=== PATIENT | female | born 1955 | race Caucasian/White ===

== ENCOUNTER 2025-06-11 15:40 | Emergency (ER) | payer MEDICARE, SELFPAY ==
[2025-06-11 15:52] VITALS: BP 150/74; PULSE 99; TEMP 36.8; O2SAT 95; BMI 45.7
--- NOTE | 2025-06-11 16:09 | XR_ITS ---
[address] [address] Patient Name: JOHN OLIVEROS MRN: [id number] date: 1955 Sex: F Assigned Patient Location: ER Current Patient Location: ED.MAIN Accession/Order Number: [id number] Exam Date: 06/11/2025 16:27 Report Date: 06/11/2025 16:55 At the request of: LILY MENDOZA Procedure: XR knee LT 3V LEFT KNEE - 3 views CLINICAL HISTORY: pain COMPARISON: None FINDINGS: Moderate degenerative changes with medial weightbearing joint space narrowing. No acute bony process. XR/XR knee LT 3V IMPRESSION: MODERATE DEGENERATIVE CHANGE. Impression dictated by: Julio Cesar Diaz Jr., D.OPooja 06/11/2025 4:55 PM Dictation Location: [place] [address] Electronically authenticated by: [id number] Y Date: 06/11/2025 16:55
--- NOTE | 2025-06-11 16:10 | ED_ITS ---
HPI HPI - Extremity Injury (Lower) General Chief Complaint: Extremity Injury, Lower Stated Complaint: LOWER PAIN Time Seen by Provider: 06/11/25 15:46 Source: patient Mode of arrival: Wheelchair History of Present Illness HPI Narrative: Patient is a 69-year-old female who presents to the ER with her spouse for evaluation of left knee pain. Patient states a couple days ago she was walking and felt her knee shift which started some pain. She is having difficulty weightbearing but reports no pain at rest. She has taken Tylenol No. 4 in the past for this but does not have any of that medication prescribed to her at this time. She reports it has been over a year since she had a cortisone injection in the knee and previously got gel injections with good relief. She has done orthopedic care through Dr. Lange at [facility] orth[facility]. Patient denies any radicular symptoms. She denies any fever or chills. Pain present with weightbearing she is using a cane today to ambulate but prefers a wheelchair for long distances. The patient states she is disabled due to her bilateral knee pains and arthritis and does not work or walk much because of this. She did not take any medication prior to arrival and declines the use of an ice pack. She denies any head or neck injury. She denies a fall. The patient does take Eliquis for A-fib and typically can only take Tylenol for p ain. She denies any other joint pains at present time. Patient appears in no distress and easily talks about symptoms but appears to have pain on end range of motion and weightbearing involving the left knee joint. Patient states she has had this similar pain in the past when her knee shifts with exacerbation of arthritis symptoms. complaint: Reports knee injury Onset (ago): day(s) (2) Injury: Left: knee Place: Reports home Severity: moderate Relieving factors: Reports rest Exacerbating factors: Reports weight bearing and movement Other symptoms: Reports none Related Data Home Medications ?Medication ?Instructions ?Recorded ?Confirmed apixaban 5 mg tablet (Eliquis) 5 mg PO BID 06/11/25 Previous Rx's ?Medication ?Instructions ?Recorded acetaminophen 300 mg-codeine 30 mg 1 tab PO Q6H PRN pa in 2 days #8 06/11/25 tablet tabs prednisone 20 mg tablet 40 mg (2 x 20 mg) PO ONCE 5 days 06/11/25 #10 tabs Allergies Allergy/AdvReac Type Severity Reaction Status Date / Time acetaminophen (From Vicodin) Allergy sleep walk Verified 06/11/25 15:50 hydrocodone (From Vicodin) Allergy sleep walk Verified 06/11/25 15:50 lidocaine Allergy tachycardia Verified 06/11/25 15:50 tetanus and diphtheria Allergy swelling Verified 06/11/25 15:50 toxoids Opioid HPI Opioid Management Most Recent Pain and Opioid Data: Last Pain Scale 8 Today, 16:20 Last MAR Pain Assessment Today, 16:20 Review of Systems ROS Constitutional Denies: fever or chills Ears, nose, mouth, and throat Denies: throat pain or neck pain Cardiovascular Denies: chest pain, palpitations or edema Respiratory Denies: shortness of breath or cough Genitourinary Denies: painful urination Musculoskeletal Reports: extremity pain (left knee) and joint pain; Denies: back pain Integumentary/Breast Denies: rash Neurological Denies: headache Psychiatric Denies: anxiety Hematologic/Lymphatic Reports: easy bruising (eliquis use ) PFSH PFSH Social History Little interest or pleasure in doing things: not at all Feeling down, depressed, or hopeless: not at all Exam Narrative Exam Narrative: Vital signs reviewed and nurse's notes. The patient is not hypoxic. General: Alert, no acute distress, patient resting comfortably Skin: warm, intact, no pallor noted Head: Normocephalic, atraumatic Eye: Normal conjunctiva, no exudates Respiratory: No acute distress, lungs CTA Musculoskeletal: No evidence of deformity to the left knee. There is symmetric appearing adipose tissue to distal thigh. skin wrinkles present and an effusion is not appreciated. There is no ecchymosis or sign of injury, No erythema or warmth noted. DP and PT pulses are intact 2+. Normal sensation, normal capillary refill less than 2 seconds. There is no cyanosis or mottling noted. The patient has tenderness to medial and lateral joint line. + patella femoral crepitus on motion. The patient has no signficant laxity or pain with gentle varus or valgus stressing. The patient has negative anterior drawer and Gurpreet test could not be preformed with pain and leg girth. The patient was able to flex and extend although with pain. PROM 5-85 with AROM 0-90 + pain on end rom on left knee. Right knee is 0-95 AROM=PROM + patella femoral crepitus. Patient was able to extend leg off the cart. No tenderness noted to the 5th MT, midfoot, ankle or proximal fibular area. There is no pain with calcaneal squeeze, achilles tendon is intact and no defect is palpated. The patient has no pelvic instability. The patient has no shortening or rotation noted to the bilateral lower extremities. no calf pain. Neurological: alert and orient x4, normal sensory and motor observed. Psychiatric: Cooperative Constitutional Vital Signs, click to edit/add: Last Vital Signs Temp 98.2 F 06/11/25 15:52 Pulse 99 H 06/11/25 15:52 Resp 18 06/11/25 15:52 BP 150/74 H 06/11/25 15:52 Pulse Ox 95 06/11/25 15:52 O2 Del Method Room Air 06/11/25 15:52 Course Vital Signs Vital signs: Vital Signs Temperature 98.2 F 06/11/25 15:52 Pulse Rate 99 H 06/11/25 15:52 Respiratory Rate 18 06/11/25 15:52 Blood Pressure 150/74 H 06/11/25 15:52 Pulse Oximetry 95 06/11/25 15:52 Oxygen Delivery Method Room Air 06/11/25 15:52 Temperature 98.2 F 06/11/25 15:52 Pulse Rate 99 H 06/11/25 15:52 Respiratory Rate 18 06/11/25 15:52 Blood Pressure 150/74 H 06/11/25 15:52 Pulse Oximetry 95 06/11/25 15:52 Oxygen Delivery Method Room Air 06/11/25 15:52 MDM - Extremity Injury (Lower) MDM Narrative Medical decision making narrative: Patient arrives via wheelchair uses cane to transfer. No fever no joint findings concerning for infection at this time. Patient reports a history of arthritis that has led to disability and that she has not seen her orthopedic in quite some time to discuss a cortisone injection or gel injection which has provided her relief in the past. Her knee range of motion is limited by pain on end range of motion and a mild effusion is possible but limited on exam with adipose tissue. We discussed her blood thinner medication and an x-ray will be performed to rule out fracture given her pain with weightbearing, she does not have pain at rest or with gentle passive motion. Should be given a Tylenol 3 for her acute pain and prednisone for anti-inflammatory effect with risks and benefits discussed. Patient states she has taken prednisone in the past without adverse effects but does have difficulty with multiple oral pain medications citing allergies. Reviewed x-rays, no obvious fracture. Chondral contusion cannot be excluded. Most importantly there is no fever or warmth or concerning findings for infection at this time. I do not feel a joint aspiration is warranted. We discussed the need to take prednisone for inflammation ice elevate and use compression. Patient will be placed in a Khan wrap today. We discussed a very short supply of Tylenol 3 which has not indicated for long-term treatment of knee arthritis but given trace effusion and her use of blood thinners we will start this pending improvement with the oral prednisone. Patient encouraged to follow-up with orthopedics to discuss additional conservative measures patient will try to be nonweightbearing in her home pending follow-up in the office. The patient is to followup with orthopedics in next 2-3 days or to return to the emergency department should any of the signs or symptoms worsen or new symptoms develop. Patient had questions answered. The patient agrees with the following Diagnosis and Treatment plan and the patient will be discharged home. Imaging Data left knee xray, : Attestation: I personally reviewed and interpreted this imaging study as follows: My impression: Preliminary review left knee x-ray shows osteopenia with [id number] articulation medial joint line significant subchondral sclerosis and flattening of the articular surface with associated osteophytes to the weightbearing joint spaces. There is moderate patellofemoral arthritic changes as well. No acute fracture visualized. left knee xray: Radiologist's impression: ITS Impressions Knee X-Ray 06/11/25 16:09 IMPRESSION: MODERATE DEGENERATIVE CHANGE. Impression dictated by: Julio Cesar Diaz Jr., D.O. 06/11/2025 4:55 PM Dictation Location: [place] Electronically authenticated by: [id number] Y Date: 06/11/2025 16:55 Discharge Plan Discharge Chief Complaint: Extremity Injury, Lower Clinical Impression: Acute pain of left knee, Arthritis of knee, left Patient Disposition: Home, Self-Care Time of Disposition Decision: 16:41 Condition: Good Prescriptions / Home Meds: New prednisone 20 mg tablet 40 mg PO ONCE 5 Days Qty: 10 0RF acetaminophen-codeine 300-30 mg tablet 1 tab PO Q6H PRN (Reason: pain) 2 Days Qty: 8 0RF Rx Instructions: dX M17.12 No Action Eliquis 5 mg tablet 5 mg PO BID Print Language: Martiniquais Instructions: Osteoarthritis (ED), Knee Pain (ED) Additional Instructions: Dr. Camara ins celebrity chef entrepreneur media personality for Dr. Knight. please call their Office Friday for follow up. Referrals: ALISTAIR CAMARA [Physician, Family Practice] - As soon as possible
[2025-06-11] MEDS: PREDNISONE 20 MG TABLET 40 MG PO (16:20)
[2025-06-11] MEDS: ACETAMINOPHEN 300 MG/ 30 MG CODEINE TABLET 1 TAB PO (16:20)
--- OUTSIDE RECORDS SUMMARY | 2025-06-11 16:55 | XMS_ITS | Clinical Summary ---
Author Organization [facility] Address [address] [place] [address] Phone Care Team Providers Care Tubular Stock Glass Bulb Machine Former Name Role Phone JaylaRoger matthews Primary Care Provider [phone] Allergies Active AllergyReactionsCriticalityNoted DateCommentsAspirinOther,Nausea/vomiting 10/02/20232575GdihyugdjJltgzwe29/11/2024Hydrocodone-FininjqnvbsgtFowiqXkvo01/12/2023 Bradycardia AoglncucxMycjopobqrqpMin44/03/2023 Increases heart ate Oxycodone-AcetaminophenNausea DhecBtj7803/04/20235561UxxjqxmqNmegoEkp00/12/2023 NtjomuduesrhNkxauxeBoq85/12/8360EndtxuouwthagcdjZdbgqOppx32/23/2025Tetanus Toxoid, NtjbvtvuJkkedjmWcdxit22/12/2023 Medications MedicationSigDispense QuantityRefillsLast FilledStart DateEnd DateStatus pantoprazole (ProtoNix) 40 mg EC tablet Take 1 tablet (40 mg) by mouth once daily.10/11/2021ctive cyanocobalamin (Vitamin B-12) 1,000 mcg/mL oral liquid Take 1 mL (1,000 mcg) by mouth every 30 (thirty) days.Active traMADol (Ultram) 50 mg tablet Take 1 tablet (50 mg) by mouth.Active magnesium oxide (Mag-Ox) 400 mg tablet 1 tablet (400 mg) once daily.Active metoprolol succinate XL (Toprol-XL) 50 mg 24 hr tablet Indications:CHF (NYHA class III, ACC/AHA stage C) (Multi)Take 1 tablet (50 mg) by mouth once daily. Do not crush or chew. 90 tablet ctive torsemide (Demadex) 10 mg tablet Indications:CHF (NYHA class III, ACC/AHA stage C) (Multi)Take 0.5 tablets (5 mg) by mouth once daily. 45 tablet ctive apixaban (Eliquis) 5 mg tablet Indications:Permanent atrial fibrillation (Multi)Take 1 tablet (5 mg) by mouth 2 times a day. 180 tablet ctive apixaban (Eliquis) 5 mg tablet Indications:Permanent atrial fibrillation (Multi)Take 1 tablet (5 mg) by mouth 2 times a day. 180 tablet Discontinued(Reorder) metoprolol succinate XL (Toprol-XL) 50 mg 24 hr tablet Indications:CHF (NYHA class III, ACC/AHA stage C) (Multi)Take 1 tablet (50 mg) by mouth once daily. Do not crush or chew. 90 tablet Discontinued(Reorder) torsemide (Demadex) 10 mg tablet Indications:CHF (NYHA class III, ACC/AHA stage C) (Multi)Take 0.5 tablets (5 mg) by mouth once daily. 45 tablet Discontinued(Reorder) Active Problems ProblemNoted DateDiagnosed DateNasal hgcaboip51/01/2025Use of cane as ambulatory aid05/23/2025Encounter to discuss test tgkxvbi8105/23/2025S/P gastric bypass 06/07/2024Medication course padpsga0610/09/2023Hiatal kkrzis0510/09/2023Stage 3b chronic kidney disease (CKD)10/09/2023Long term current use of anticoagulant bxnodkd8904/07/2023Stage 3a chronic kidney aslomwj2804/07/2023Essential hypertension 04/07/2023MI 45.0-49.9, adult04/07/2023HF (NYHA class III, ACC/AHA stage C) 03/04/2023ongenital stenosis of aortic valve03/04/2023iastolic congestive heart failure, NYHA class 5095Bytgwcyzqwvy61/12/2023Hyponatremia 03/04/20233627Zoqldwxejrmavt65/12/2023Microcytic msdznj9603/04/20230425Dmckbf02/12/2023 Permanent atrial qrnzgvvomicr93/12/2023SOB (shortness of breath) on exertion 03/04/2023Tricuspid mgjyfrrgdpqba71/12/2023First degree AV block03/04/2023Former ktbbye4103/04/2023Sinus hmelaspaoqr48/12/2023 Encounters DateTypeDepartmentCare ZlzjUhtxuwpwust89/01/2025 2:00 PM ESTOffice Visit [facility] [address] [address] Erna Smyth MD Permanent atrial fibrillation (Multi); Encounter to discuss test results; Body mass index 45.0-49.9, adult ([facility]); CHF (NYHA class III, ACC/AHA stage C) (Multi); Murmur; [employer] current use of anticoagulant therapy; Nasal bleeding; Hyperkalemia; Microcytic anemia; Hyponatremia; S/P gastric bypass; Use of cane as ambulatory aid; BMI 45.0-49.9, adult (Multi); Former smoker; Lipid screening Discharge Disposition: Home05/23/2025Travelfrom Last 3 Months Immunizations ImmunizationAdministration DatesNext DueFlu vaccine (IIV4), preservative free *Check age/dose*05/28/2018Influenza, injectable, ebefcwsanqqm75/12/2018, 04/03/2017Influenza, seasonal, ugcfqyejzj72/30/2019 Family History Medical HistoryRelationNameCommentscardiac disorderBrotherHeart attackFather Heart failureFathercardiac disorderFatherCoronary artery diseaseMothercardiac disorderMotherIschemic heart diseaseOtherRelationNameStatusCommentsBrotherFather DeceasedMotherDeceasedOther Social History Tobacco UseTypesPacks/DayYears UsedDateSmoking Tobacco: FormerCigarettes Smokeless Tobacco: Never Tobacco Cessation:Counseling Given: Yes Alcohol UseStandard Drinks/WeekCommentsNever0 (1 standard drink = 0.6 oz pure alcohol)PHQ-2AnswerDate RecordedPatient Health Questionnaire-2 Qwosh677 CommentsUnknownSex and Gender InformationValueDate RecordedSex Assigned at BirthNot on fileLegal AncCscael15/26/2022 4:26 PM ESTGender IdentityNot on fileSexual OrientationNot on file Last Filed Vital Signs Vital SignReadingTime TakenCommentsBlood Lmfslxxg141/7405/23/2025 2:17 PM EST Doyju517605/23/2025 2:17 PM ESTTemperature--Respiratory Rate--Oxygen Saturation-- Inhaled Oxygen Concentration--Zvbvwx974 kg (264 lb)05/23/2025 2:17 PM ESTHeight 157.5 cm (5' 2 )05/23/2025 2:17 PM ESTBody Mass Index48.29107/24/2024 2:17 PM EST Plan of Treatment DateTypeDepartmentCare Team (Latest Contact Info)Cjzrolrcyzt34/01/2026 2:00 PM EDTOffice Visit at [facility] [address] [facility] [address] [place] [address] Erna Smyth MD [address] [facility] [address] [place] [address] Health MaintenanceDue DateLast DoneCommentsCT Othwrzgllgsn75/14/1954Colonoscopy 4Colorectal Cancer Oiijdcqjf81/14/1954Creatinine Level1953FIT-DNA (Cologuard)1955FIT1953Lipid Panel1953Medicare Annual Wellness Visit (AWV)4Potassium Level1955 9555Mmbeisljkovgv87/14/1954TSH Level 1955MMR Vaccines (1 of 1 - Standard series)1954Hepatitis C Screening 09/04/1971CKD: Urine Protein Wblhjubso29/14/1973DTaP/Tdap/Td Vaccines (1 - Tdap) 09/04/19751686Kemzumqpc57/14/1994RSV High Risk: (Elderly (60+) or Population) (1 - Risk 50-74 years 1-dose series)09/04/2003Zoster Vaccines (1 of 2)09/04/2003Bone Density Scan09/03/20183465Oednbhpiqmxlmm68/20/767286/, 2COVID-19 Vaccine ( season), 09/22/2020, 09/01/2020Influenza Vaccine (#1), 04/21/2019, 06/03/2018, Additional history existsPneumococcal XfzweqpAhyxrrshk99/23/2023HIB VaccinesAged OutNo longer eligible based on patient's age to complete this topicHPV Vaccines Aged OutNo longer eligible based on patient's age to complete this topic Hepatitis A VaccinesAged OutNo longer eligible based on patient's age to complete this topicHepatitis B VaccinesAged OutNo longer eligible based on patient's age to complete this topicIPV VaccinesAged OutNo longer eligible based on patient's age to complete this topicMeningococcal VaccineAged OutNo longer eligible based on patient's age to complete this topicRotavirus VaccinesAged Out No longer eligible based on patient's age to complete this topic Procedures Procedure NamePriorityDate/TimeAssociated DiagnosisCommentsECHOCARDIOGRAMRoutine 10/10/2021 from Last 3 Months or Most Recently Relevant to Health Maintenance Results * Echocardiogram (10/10/2021)Specimen (Source)Anatomical Location / Laterality Collection Method / VolumeCollection TimeReceived Time10/10/2021 [facility] RADIOLOGY SYSTEM - 10/10/2021 12:00 AM EDT ?[address], Suite [facility], [place] [address] ? TRANSTHORACIC ECHOCARDIOGRAM REPORT Patient Name: ? TRACY OLIVEROS Reading Physician: ??[id number] Kori South ? Study Date: ? 10/10/2021 ?Referring ? [id number] ERNA SMYTH ? Physician: MRN/PID: ?[id number] ? PCP: ?Roger Dickerson MD Accession/Order#: [id number] ?? Department ?[facility] ? Location: Date of : ?1955 ?Fellow: Gender: ? F ?Nurse: ?Priya Raphael sales order coordinator Date: ?Sawmill Production Worker: ?Radha Mclaughlin RDCS, RVT Height: ? 157.48 cm ?CC Report to: Weight: ? 123.38 kg ?Study Type: ? Echocardiogram BSA: ?2.18 m2 Blood Pressure: 140 /78 mmHg Diagnosis/ICD: I48.19-Other persistent AFib; R06.02-Shortness of breath; ? R60.0-Localized edema Indication: ?CHF, Murmur, Anemia, Morbid Obesity-s/p Bariatric Surgery, Former ? Smoker Procedure/CPT: Echo Complete w Full Doppler-[id number] Study Detail: The following Echo studies were performed: 2D, M-Mode, Doppler and ?color flow. Optison used as a contrast agent for endocardial ?border definition. Total contrast used for this procedure was 0.7 ?mL via IV push. PHYSICIAN INTERPRETATION: Left Ventricle: The left ventricular systolic function is normal, with an estimated ejection fraction of 65%. The left ventricular cavity size is normal. Spectral Doppler shows a normal pattern of left ventricular diastolic filling. Mild LVH. Left Atrium: The left atrium is moderately dilated. Right Ventricle: The right ventricle is normal in size. There is normal right ventricular global systolic function. Right Atrium: The right atrium is normal in size. Aortic Valve: The aortic valve appears structurally normal. There is trace to mild aortic valve regurgitation. The peak instantaneous gradient of the aortic valve is 27.0 mmHg. The mean gradient of the aortic valve is 14.0 mmHg. Mitral Valve: The mitral valve is normal in structure. There is mild mitral valve regurgitation. Mild mitral regurgitation. Tricuspid Valve: The tricuspid valve is structurally normal. There is mild tricuspid regurgitation.The Doppler estimated RVSP is mildly elevated at 39.7 mmHg. Mild tricuspid regurgitation. Pulmonic Valve: The pulmonic valve is structurally normal. There is no indication of pulmonic valveregurgitation. Pericardium: There is no pericardial effusion noted. Aorta: The aortic root is normal. CONCLUSIONS: 1. The left ventricular systolic function is normal with a 65% estimated ejection fraction. 2. Mild LVH. 3. The left atrium is moderately dilated. 4. Mild mitral regurgitation. 5. Mild tricuspid regurgitation. 6. Mildly elevated RVSP. 7. No previous study available for comparison. QUANTITATIVE DATA SUMMARY: 2D MEASUREMENTS: ?Normal Ranges: Ao Root d: ? 3.10 cm ?(2.0-3.7cm) LAs: ? 4.90 cm ?(2.7-4.0cm) RVIDd: ? 3.30 cm ?(0.9-3.6cm) IVSd: ?1.50 cm ?(0.6-1.1cm) LVPWd: ? 1.20 cm ?(0.6-1.1cm) LVIDd: ? 4.80 cm ?(3.9-5.9cm) LVIDs: ? 3.10 cm LV Mass Index: 119.2 g/m2 LV % FS ?35.4 % LV SYSTOLIC FUNCTION BY 2D PLANIMETRY (MOD): ?Normal Ranges: EF-A4C View: 63.8 % (>55%) LV DIASTOLIC FUNCTION: ?Normal Ranges: MV Peak E: 1.73 m/s (0.7-1.2 m/s) MITRAL VALVE: ?Normal Ranges: MV Vmax: 2.04 m/s (<1.3m/s) MV peak P.6 mmHg (<5mmHg) MV mean P.0 mmHg (<48mmHg) MITRAL INSUFFICIENCY: ? Normal Ranges: MR Vmax: 438.00 cm/s AORTIC VALVE: ? Normal Ranges: AoV Vmax: 2.60 m/s (<1.7m/s) AoV Peak P.0 mmHg (<20mmHg) AoV Mean PG: ? 14.0 mmHg (1.7-11.5mmHg) LVOT Max Grant: 1.06 m/s (<1.1m/s) AoV VTI: ? 54.00 cm ??(18-25cm) LVOT VTI: ?25.90 cm LVOT Diameter: ? 1.90 cm ?? (1.8-2.4cm) AoV Area, VTI: ? 1.36 cm2 ??(2.5-5.5cm2) AoV Area,Vmax: ? 1.16 cm2 ??(2.5-4.5cm2) AoV Dimensionless Index: 0.48 AORTIC INSUFFICIENCY: AI Vmax: ? 2.82 m/s AI Half-time: ??292 msec AI Decel Rate: 276.00 cm/s2 TRICUSPID VALVE/RVSP: ?Normal Ranges: Peak TR Velocity: 3.03 m/s RV Syst Pressure: 39.7 mmHg (< 30mmHg) PULMONIC VALVE: ? Normal Ranges: PV Max Grant: 0.9 m/s ??(0.6-0.9m/s) PV Max PG: ??2.9 mmHg [id number] Kori South MD Electronically signed on 10/10/2021 at 6:24:21 PM Final Procedure Note Conversion, Syngo - 07/26/[address], [address] [place] [address] TRANSTHORACIC ECHOCARDIOGRAM REPORT Patient Name: TRACY OLIVEROS Reading Physician: [id number] Be SMITH Study Date: 10/10/2021 Referring [id number] ERNA SMYTH Physician: MRN/PID: [id number] PCP: Roger Dickerson MD Accession/Order#: [id number] Department [facility] Location: Date of : 1955 Fellow: Gender: F Nurse: Priya Raphael RN Admit Date: [employer]mill Production Worker: Radha Mclaughlin RDCS,RVT Height: 157.48 cm CC Report to: Weight: 123.38 kg Study Type: Echocardiogram BSA: 2.18 m2 Blood Pressure: 140 /78 mmHg Diagnosis/ICD: I48.19-Other persistent AFib; R06.02-Shortness of breath; R60.0-Localized edema Indication: CHF, Murmur, Anemia, Morbid Obesity-s/p Bariatric Surgery,Former Smoker Procedure/CPT: Echo Complete w Full Doppler-[id number] Study Detail: The following Echo studies were performed: 2D, M-Mode,Doppler and color flow. Optison used as a contrast agent forendocardial border definition. Total contrast used for this procedurewas 0.7 mL via IV push. PHYSICIAN INTERPRETATION: Left Ventricle: The left ventricular systolic function is normal, with an estimated ejection fraction of 65%. The left ventricular cavity size isnormal. Spectral Doppler shows a normal pattern of left ventriculardiastolic filling. Mild LVH. Left Atrium: The left atrium is moderately dilated. Right Ventricle: The right ventricle is normal in size. There is normalright ventricular global systolic function. Right Atrium: The right atrium is normal in size. Aortic Valve: The aortic valve appears structurally normal. There is traceto mild aortic valve regurgitation. The peak instantaneous gradient of theaortic valve is 27.0 mmHg. The mean gradient of the aortic valve is 14.0mmHg. Mitral Valve: The mitral valve is normal in structure. There is mildmitral valve regurgitation. Mild mitral regurgitation. Tricuspid Valve: The tricuspid valve is structurally normal. There is mild tricuspid regurgitation. The Doppler estimated RVSP is mildly elevated at39.7 mmHg. Mild tricuspid regurgitation. Pulmonic Valve: The pulmonic valve is structurally normal. There is noindication of pulmonic valve regurgitation. Pericardium: There is no pericardial effusion noted. Aorta: The aortic root is normal. CONCLUSIONS: 1. The left ventricular systolic function is normal with a 65% estimatedejection fraction. 2. Mild LVH. 3. The left atrium is moderately dilated. 4. Mild mitral regurgitation. 5. Mild tricuspid regurgitation. 6. Mildly elevated RVSP. 7. No previous study available for comparison. QUANTITATIVE DATA SUMMARY: 2D MEASUREMENTS: Normal Ranges: Ao Root d: 3.10 cm (2.0-3.7cm) LAs: 4.90 cm (2.7-4.0cm) RVIDd: 3.30 cm (0.9-3.6cm) IVSd: 1.50 cm (0.6-1.1cm) LVPWd: 1.20 cm (0.6-1.1cm) LVIDd: 4.80 cm (3.9-5.9cm) LVIDs: 3.10 cm LV Mass Index: 119.2 g/m2 LV % FS 35.4 % LV SYSTOLIC FUNCTION BY 2D PLANIMETRY (MOD): Normal Ranges: EF-A4C View: 63.8 % (>55%) LV DIASTOLIC FUNCTION: Normal Ranges: MV Peak E: 1.73 m/s (0.7-1.2 m/s) MITRAL VALVE: Normal Ranges: MV Vmax: 2.04 m/s (<1.3m/s) MV peak P.6 mmHg (<5mmHg) MV mean P.0 mmHg (<48mmHg) MITRAL INSUFFICIENCY: Normal Ranges: MR Vmax: 438.00 cm/s AORTIC VALVE: Normal Ranges: AoV Vmax: 2.60 m/s (<1.7m/s) AoV Peak P.0 mmHg (<20mmHg) AoV Mean P.0 mmHg (1.7-11.5mmHg) LVOT Max Grant: 1.06 m/s (<1.1m/s) AoV VTI: 54.00 cm (18-25cm) LVOT VTI: 25.90 cm LVOT Diameter: 1.90 cm (1.8-2.4cm) AoV Area, VTI: 1.36 cm2 (2.5-5.5cm2) AoV Area,Vmax: 1.16 cm2 (2.5-4.5cm2) AoV Dimensionless Index: 0.48 AORTIC INSUFFICIENCY: AI Vmax: 2.82 m/s AI Half-time: 292 msec AI Decel Rate: 276.00 cm/s2 TRICUSPID VALVE/RVSP: Normal Ranges: Peak TR Velocity: 3.03 m/s RV Syst Pressure: 39.7 mmHg (< 30mmHg) PULMONIC VALVE: Normal Ranges: PV Max Grant: 0.9 m/s (0.6-0.9m/s) PV Max P.9 mmHg [id number] Kori South MD Electronically signed on 10/10/2021 at 6:24:21 PM Final Authorizing ProviderResult TypeResult StatusSyngo ConversionCV ECHO PROCEDURES Final ResultPerforming OrganizationAddressCity/State/ZIP CodeAscension St. [facility] Number [facility] [address] from Last 3 Months or Most Recently Relevant to Health Maintenance Insurance Care Teams Team MemberRelationshipSpecialtyStart DateEnd Date Roger Dickerson DO [address] [address] PCP - General06/23/19
--- OUTSIDE RECORDS SUMMARY | 2025-06-11 16:55 | XMS_ITS | Clinical Summary ---
Author Organization [facility] Address [address] [place] [address] Care Team Providers Care Inhalation Therapist Name Role Phone Quinn Herbert Primary Care Provider [phone]- [phone] Roger Dickerson DO Unavailable [phone] Allergies Active AllergyReactionsCriticalityNoted DateCommentsPropoxyphene N-Acetaminophen GI Upset03/25/2023LidocaineOther: See Lhzyvwvc23/03/2023 Increases heart ate ProcaineOther: See Vgpnutco20/03/2023 Increases heart rate Tetanus And Diphtheria IccpewtRutnfyiv18/03/2023 Arm swells up Hydrocodone-AcetaminophenOther: See Vqrqrgyl31/03/2023 Swelling and redness of face Medications MedicationSigDispense QuantityRefillsLast FilledStart DateEnd DateStatus sulfamethoxazole-trimethoprim (BACTRIM DS) 800-160 mg per tablet Take 1 tablet by mouth two times a day. Take 1 tablet BID x 21 daysActive escitalopram oxalate (LEXAPRO) 5 mg tablet Take 5 mg by mouth once daily.Active flecainide (TAMBOCOR) 150 mg tablet Take 50 mg by mouth two times a day.Active metoprolol succinate ER (TOPROL XL) 25 mg 24 hr tablet Take 25 mg by mouth once daily.Active pantoprazole DR (PROTONIX) 40 mg tablet Take 40 mg by mouth once daily.Active spironolactone (ALDACTONE) 25 mg tablet Take 25 mg by mouth once daily.Active torsemide (DEMADEX) 10 mg tablet Take 10 mg by mouth once daily.Active estradiol (ESTRACE) 0.01 % (0.1 mg/gram) vaginal cream Indications:Recurrent UTIUse 1 g vaginally two times a week. 42.5 g 210/03/2023Active Social History Tobacco UseTypesPacks/DayYears UsedDateSmoking Tobacco: Never AssessedArea Deprivation IndexAnswerDate RecordedNational Score (1-100), lower number is lower zywh167303/25/2023State Score (1-10), lower number is lower xodn091 Data from: https://www.neighborhoodatlas.medicine.[facility]/. Last address used for z[address]03/25/2023CommentsUnknownSex and Gender InformationValueDate RecordedSex Assigned at BirthNot on fileLegal SexFemale 05/24/2012 9:34 AM ESTGender IdentityNot on fileSexual OrientationNot on file Plan of Treatment Health MaintenanceDue DateLast DoneCommentsAnxiety Npdehgbfc63/14/1972Depression Vgrscnnye28/14/1972Hepatitis C Ossbfpuet43/14/1972DTaP,Tdap,Td Vaccine (1 - Tdap)1972Mammogram Qjbpqgwfe24/14/1994CT Ilpxdkpkucua39/14/1999Cologuard (FIT-DNA)09/03/19985973Smtqwybxhrf69/14/1999Colorectal Cancer Ikjpxnpri75/14/1999 Fecal Occult Blood1998Lipid Unwzvtuts29/14/9990Ymqeahuxztyuy94/14/1999 Pneumococcal Vaccine: 50+ (1 of 1 - PCV)09/04/2003Shingrix Vaccine (1 of 2) 09/04/2003Bone Density Xhujskvda20/14/2019Advance Directive Hzyiicovln35/01/2025 Medicare Advantage Annual Wellness Visit06/23/2024ovid-19 Vaccine ( season)504/07/2020, 09/01/2020Influenza Vaccine (#1)2025 04/21/2019, 06/03/2018, 05/28/2018, Additional history existsDiabetes Screening RSV Vaccine (1 - 1-dose 75+ series)2028 Insurance Care Teams Team MemberRelationshipSpecialtyStart DateEnd Date Quinn Herbert [address] [place] [address] [facility] - General09/30/00 Roger Dickesron DO [address] [place] [id number] [facility]02/17/23
--- OUTSIDE RECORDS SUMMARY | 2025-06-11 16:55 | XMS_ITS | Clinical Summary ---
Author Organization [facility] Address [address] [place] [address] Care Team Providers Care Dressing Machine Operator Name Role Phone Unavailable Primary Care Provider Unavailabl e Social History Tobacco UseTypesPacks/DayYears UsedDateSmoking Tobacco: Never Assessed CommentsUnknownSex and Gender InformationValueDate RecordedSex Assigned at Not on fileLegal BdlImhszu91/15/2023 6:42 PM EDTGender IdentityNot on fileSexual OrientationNot on file Plan of Treatment Not on file Insurance * Guarantor: Tracy Wheatcojaniya TypeRelation to PatientDate of BirthPhone Billing AddressPersonal/EexxnjMzco60/14/[address] [place] [phone]
[2025-06-11 17:32] VITALS: BP 152/98; PULSE 100; O2SAT 99
== END 2025-06-11 17:25 | disposition home or self-care (01) ==
PROVIDERS: Emergency Provider Emergency Medicine; PCP Family Medicine
DX: M25.562 Pain in left knee (principal); M17.12 Unilateral primary osteoarthritis, left knee; Z79.01 Long term (current) use of anticoagulants; I48.91 Unspecified atrial fibrillation
CPT/HCPCS: 73562; 99283; J7512